=== PATIENT | male | born 1950 | race Caucasian/White ===

== ENCOUNTER 2017-03-18 01:01 | Inpatient (IN) | payer OTHER, MEDICARE ==
[~2017-03-18] VITALS: Ht 185.4 cm; Wt 86.2 kg
[2017-03-18] MEDS ORDERED: TRAM50 PO (03:29)
== END 2017-03-19 11:40 | disposition home or self-care (01) | DRG 390 ==
LOC: ER 01:01 → PCU 02:54 → SURS 02:54 → PCU 03:04 → SURS 10:02
DX: K56.609 Unspecified intestinal obstruction, unspecified as to partial versus complete obstruction (principal); Z88.5 Allergy status to narcotic agent; Z90.49 Acquired absence of other specified parts of digestive tract
CPT/HCPCS: 71045; 74250; 96374; 96375; 99285; J1170; J2405; J7030